=== PATIENT | male | born 1955 | race Caucasian/White ===

== ENCOUNTER 2017-12-16 12:55 | Outpatient (CLI) | payer OTHER ==
--- NOTE | 2017-12-16 15:03 | MRI ---
MRI OF THE LUMBAR SPINE WITHOUT CONTRAST: INDICATION: Low back pain with right-sided radiculopathy. FINDINGS: There is a T2 hyperintense, and T1 hypointense lesion involving the left kidney suspicious for a prom inent cyst. There are multiple peripelvic cysts bilaterally. There is slight retrolisthesis of L3 o n L4 and L2 on L3. There is some suspected Modic end plate degenerative change at L2-3, L3-4, and L4 -5. Conus is seen to terminate at approximately L1-2. No definite enlarged lymph nodes are evident. At the L5-S1 level, there is severe left and mild right facet joint degenerative change. There is no appreciable central canal or neural foraminal narrowing. At L4-5, there is a broad-based bulge with facet hypertrophy producing mild central canal narrowing. There is mild bilateral neural foraminal narrowing, right greater than left. At L3-4, there is a disk-osteophyte complex asymmetrically to the right. There is facet osteoarthros is. There is moderate left and moderate to severe right neural foraminal narrowing. At L2-3, there is a broad-based disk-osteophyte complex with facet hypertrophy inducing moderate righ t and mild left neural foraminal narrowing. At L2-3, there is an asymmetric to the left disk-osteophyte complex inducing mild left neural foramin al narrowing. At L1-2, there is no appreciable central canal or neural foraminal narrowing. IMPRESSION: 1. Prominent multilevel spondylosis of lumbar spine with levoscoliosis centered at L3. 2. Multilevel neural foraminal narrowing as detailed above. 3. Multiple T2 hyperintense lesions involving the parapelvic region as well as the cortex of both ki dneys suspicious for cysts. Renal ultrasound may be helpful for improved characterization. POS: [facility]
== END 2017-12-16 12:56 | disposition home or self-care (01) ==
LOC: TBSIIMAG 12:55
PROVIDERS: ATTEND Neurological Surgery
DX: M51.36 Other intervertebral disc degeneration, lumbar region (principal); M47.896 Other spondylosis, lumbar region; M99.83 Other biomechanical lesions of lumbar region; M41.9 Scoliosis, unspecified; N28.9 Disorder of kidney and ureter, unspecified; M89.9 Disorder of bone, unspecified
CPT/HCPCS: 72148